=== PATIENT | male | born 1945 ===

== ENCOUNTER 2017-08-03 08:04 | Emergency (ER) | payer OTHER ==
[~2017-08-03] VITALS: Ht 177.8 cm; Wt 55.0 kg
[2017-08-03 08:05] VITALS: BP 170/79; PULSE 109; RESP 26; TEMP 98; O2SAT 89
[2017-08-03] MEDS ORDERED: methylPREDNISolone SOD SUCC 125 MG/2 ML VIAL IV PUSH ONE (08:45)
[2017-08-03] MEDS ORDERED: SODIUM CHLORIDE 0.9% FLUSH 10 ML FLUSH IVF PRN (08:45)
[2017-08-03 08:50] VITALS: O2SAT 90
--- NOTE | 2017-08-03 08:55 | PD ---
HPI Chief Complaint: Respiratory Symptoms Time Seen by Provider: 08:24 Travel History International Travel<30 days: No Contact w/Intl Traveler<30days: No Traveled to known affect area: No History of Present Illness HPI This patient complains of shortness of breath. He is chronically short of breath every day of his life but over the last 2 days has been a bit worse than usual. He is smoked for the past 55 years and continues to do so. He supposed to be on a breathing inhaler but it ran out a few days ago. He is got a nonproductive cough. No chest pain or documented fever. No alleviating factors. Symptoms exacerbated by continued smoking. Severity of symptoms is severe. PFSH Social History Alcohol Use: No Tobacco Use: Yes Substance Use: No Allergies-Medications (Allergen,Severity, Reaction): Coded Allergies: No Known Allergies (Unverified , 08/03/17) Reported Meds & Prescriptions Reported Meds & Active Scripts Active Zithromax Z-Jovon (Azithromycin) 250 Mg Dspk 250 Mg PO DIRECTED 500 MG (2 tabs) day 1, then 1 tab days 2-5. Ventolin Hfa 18 GM Inh (Albuterol Sulfate) 90 Mcg/Act Aer 2 Puff INH Q4H PRN Prednisone 20 Mg Tab 40 Mg PO DAILY Take 40 mg (2 tablets) daily for 5 days Review of Systems General / Constitutional: No: Fever Eyes: No: Visual changes HENT: Positive: Congestion, No: Headaches Cardiovascular: No: Chest Pain or Discomfort Respiratory: Positive: Cough, Shortness of Breath, Wheezing Gastrointestinal: No: Abdominal Pain Genitourinary: No: Dysuria Musculoskeletal: No: Pain Skin: No Rash Neurologic: No: Weakness Psychiatric: No: Depression Endocrine: No: Polydipsia Hematologic/Lymphatic: No: Easy Bruising Physical Exam Narrative GENERAL: Well-nourished, well-developed patient with shortness of breath SKIN: Focused skin assessment reveals no rash and nodules. Skin is Warm and dry. HEAD: Atraumatic. Normocephalic. EYES: Pupils equal and round. No scleral icterus. No injection or drainage. ENT: No nasal bleeding or discharge. Mucous membranes pink and moist. NECK: Trachea midline. No JVD. CARDIOVASCULAR: Regular rate and rhythm. No murmur appreciated. RESPIRATORY: Some accessory muscle use. Diminished breath sounds throughout with some rhonchi and expiratory wheeze or. Breath sounds equal bilaterally. GASTROINTESTINAL: Abdomen soft, non-tender, nondistended. Hepatic and splenic margins not palpable. MUSCULOSKELETAL: No obvious deformities. No clubbing. No cyanosis. No edema. NEUROLOGICAL: Awake and alert. No obvious cranial nerve deficits. Motor grossly within normal limits. Normal speech. PSYCHIATRIC: Appropriate mood and affect; insight and judgment poor. Data Data Last Documented VS Vital Signs Date Time Temp Pulse Resp B/P (MAP) Pulse Ox O2 Delivery O2 Flow Rate FiO2 08/03/17 11:06 112 24 121/61 (81) 97 Nasal Cannula 3.00 08/03/17 08:05 98.0 Orders Orders Complete Blood Count With Diff (08/03/17 08:33) Basic Metabolic Panel (Bmp) (08/03/17 08:33) Influenzae A/B Antigen (08/03/17 08:33) Iv Access Insert/Monitor (08/03/17 08:33) Electrocardiogram (08/03/17 08:33) Ecg Monitoring (08/03/17 08:33) Oximetry (08/03/17 08:33) Oxygen Administration (08/03/17 08:33) Chest, Single Ap (08/03/17 08:33) Sodium Chloride 0.9% Flush (Ns Flush) (08/03/17 08:45) Methylprednisolone So Succ Inj (Solumedr (08/03/17 08:45) Albuterol-Ipratropium Neb (Duoneb Neb) (08/03/17 08:45) Labs Laboratory Tests Test 08/03/17 08:55 White Blood Count 11.1 TH/MM3 Red Blood Count 4.27 MIL/MM3 Hemoglobin 10.6 GM/DL Hematocrit 31.5 % Mean Corpuscular Volume 73.8 FL Mean Corpuscular Hemoglobin 24.7 PG Mean Corpuscular Hemoglobin Concent 33.5 % Red Cell Distribution Width 18.2 % Platelet Count 372 TH/MM3 Mean Platelet Volume 6.7 FL Neutrophils (%) (Auto) 89.1 % Lymphocytes (%) (Auto) 3.1 % Monocytes (%) (Auto) 7.5 % Eosinophils (%) (Auto) 0.0 % Basophils (%) (Auto) 0.3 % Neutrophils # (Auto) 9.9 TH/MM3 Lymphocytes # (Auto) 0.3 TH/MM3 Monocytes # (Auto) 0.8 TH/MM3 Eosinophils # (Auto) 0.0 TH/MM3 Basophils # (Auto) 0.0 TH/MM3 CBC Comment DIFF FINAL Differential Comment Blood Urea Nitrogen 10 MG/DL Creatinine 0.65 MG/DL Random Glucose 126 MG/DL Calcium Level 8.8 MG/DL Sodium Level 130 MEQ/L Potassium Level 4.1 MEQ/L Chloride Level 94 MEQ/L Carbon Dioxide Level 26.6 MEQ/L Anion Gap 9 MEQ/L Estimat Glomerular Filtration Rate 121 ML/MIN MDM Medical Decision Making Medical Screen Exam Complete: Yes Emergency Medical Condition: Yes Medical Record Reviewed: Yes Differential Diagnosis Differential diagnosis includes COPD, asthma, pneumonia, bronchitis, PE. Narrative Course I have reviewed the patient's electronic medical record. Patient arrives hypoxic in acute respiratory failure from COPD exacerbation Placed him on oxygen and given a series of 3 nebulizer treatments and IV Solu- Medrol I reviewed his chest x-ray which shows some inflammatory process which could be infectious I reviewed his EKG which shows sinus rhythm without ectopy Extended cardiac monitoring shows sinus rhythm I sent his lab studies We will do frequent re-evaluations given his level of dyspnea and pulmonary function which is probably quite poor Lab studies reviewed. He does have mild hyponatremia and mild anemia We discussed smoking cessation which she does not seem motivated to think about Patient arrived critically ill with hypoxic respiratory failure but has significant improved after all of the above therapies Saturations are now mid 90s He feels improved and wants to go home I prescribed him Zithromax and prednisone and an albuterol inhaler Critical Care Narrative Aggregate critical care time was 35 minutes. Time to perform other separately billable procedures was not included in the critical care time. My time did not include minutes spent treating any other patients simultaneously or on activities that did not directly contribute to the patient's treatment. The services I provided to this patient were to treat and/or prevent clinically significant deterioration that could result in: Cardiopulmonary arrest, respiratory failure, hypoxemic brain injury I provided critical care services requiring my management, as noted below: Chart data review, documentation time, medication orders and management, vital sign assessments/reviewing monitor data, ordering and reviewing lab tests, ordering and interpreting/reviewing x-rays and diagnostic studies, care of the patient and discussion of the patient with the admitting physicians. Diagnosis Primary Impression: Acute respiratory failure with hypoxia Additional Impressions: COPD with acute exacerbation Hyponatremia Additional Instructions: The patient was advised to follow up with their physician and return if they worsen. Med/Other Pt SpecificInfo: Prescription(s) given Scripts Azithromycin (Zithromax Z-Jovon) 250 Mg Dspk 250 MG PO DIRECTED for Infection, #1 DSPK 0 Refills 500 MG (2 tabs) day 1, then 1 tab days 2-5. Prov: Ottoniel Kraft MD 08/03/17 Albuterol 18 GM Inh (Ventolin Hfa 18 GM Inh) 90 Mcg/Act Aer 2 PUFF INH Q4H Y for SHORTNESS OF BREATH, #1 INHALER 0 Refills Prov: Ottoniel Kraft MD 08/03/17 Prednisone (Prednisone) 20 Mg Tab 40 MG PO DAILY, #10 TAB 0 Refills Take 40 mg (2 tablets) daily for 5 days Prov: Ottoniel Kraft MD 08/03/17 Disposition: 01 DISCHARGE HOME Condition: Stable Ottoniel Kraft MD Aug 03, 2017 08:55
[2017-08-03] MEDS: RESP: ALBUTEROL 2.5 MG/IPRATROPIUM 0.5 MG NEB (SCH) INH (08:58)
[2017-08-03 09:00] LABS: AUTOMATED NEUTROPHIL # 9.9 TH/MM3 (1.8-7.7); BASOPHIL % 0.3 % (0.0-2.0); HEMATOCRIT 31.5 % (39.0-51.0); HEMOGLOBIN 10.6 GM/DL (13.0-17.0); LYMPH % 3.1 % (9.0-44.0); LYMPHOCYTE # 0.3 TH/MM3 (1.0-4.8); MEAN CELL VOLUME 73.8 FL (80.0-100.0); MEAN CORPUSCULAR HEMOGLOBIN 24.7 PG (27.0-34.0); MEAN CORPUSCULAR HGB CONC 33.5 % (32.0-36.0); MEAN PLATELET VOLUME 6.7 FL (7.0-11.0); MONO % 7.5 % (0.0-8.0); MONOCYTE # 0.8 TH/MM3 (0-0.9); NEUT % 89.1 % (16.0-70.0); PLATELET COUNT 372 TH/MM3 (150-450); RED BLOOD COUNT 4.27 MIL/MM3 (4.50-5.90); RED CELL DISTRIBUTION WIDTH 18.2 % (11.6-17.2); WHITE BLOOD COUNT 11.1 TH/MM3 (4.0-11.0)
--- NOTE | 2017-08-03 09:14 | RADRPT ---
EXAM DATE/TIME: 08/03/2017 08:58 [facility] COMPARISON: No previous studies available for comparison. INDICATIONS : Patient states shortness of breath. MEDICAL HISTORY : Chronic obstructive pulmonary disease. SURGICAL HISTORY : None. ENCOUNTER: Initial ACUITY: 2 days PAIN SCORE: 0/10 LOCATION: Bilateral chest FINDINGS: The lungs are markedly hyperinflated with consolidative changes developing in the left lower lobe. T he right lung is clear. The heart and pulmonary vascularity are normal. The portion of the bony skele ton visualized is unremarkable. CONCLUSION: Marked hyperinflation with patchy early consolidative changes left base suspicious for inflammatory p rocess. I have no prior films for comparison. Edy Toure MD FACR on August 03, 2017 at 9:10 Board Certified Radiologist. This report was verified electronically.
[2017-08-03 09:29] LABS: BICARBONATE 26.6 MEQ/L (21.0-32.0); CALCIUM 8.8 MG/DL (8.5-10.1); CREATININE 0.65 MG/DL (0.60-1.30)
[2017-08-03 11:06] VITALS: BP 121/61; PULSE 112; RESP 24; O2SAT 97
[2017-08-03] MEDS ORDERED: PRED20 PO (12:47)
[2017-08-03] MEDS ORDERED: VENTAER INH (12:47)
[2017-08-03] MEDS ORDERED: ZITHTAB PO (12:47)
[2017-08-03 12:52] VITALS: BP 121/61
--- NOTE | 2017-08-03 21:15 | EKG ---
Date Performed: 08/03/2017 Time Performed: 08:20:23 PTAGE: 72 years EKG: SINUS TACHYCARDIA POSSIBLE ANTERIOR MYOCARDIAL INFARCTION ABNORMAL ECG NO PREVIOUS TRACING DOCTOR: Pat Beard Interpretating Date/Time 08/03/2017 21:13:44
== END 2017-08-03 13:14 | disposition home or self-care (01) ==
LOC: NEPC 08:04
DX: J96.01 Acute respiratory failure with hypoxia (principal); J44.1 Chronic obstructive pulmonary disease with (acute) exacerbation; E87.1 Hypo-osmolality and hyponatremia; D64.9 Anemia, unspecified; R00.0 Tachycardia, unspecified; R94.31 Abnormal electrocardiogram [ECG] [EKG]; F17.200 Nicotine dependence, unspecified, uncomplicated; Z95.1 Presence of aortocoronary bypass graft; Z79.899 Other long term (current) drug therapy
CPT/HCPCS: 71045; 80048; 85025; 87804; 93005; 94664; 96374; 99291; J2930

== ENCOUNTER 2017-08-09 18:46 | Inpatient (IN) | payer OTHER, MEDICARE ==
[~2017-08-09] VITALS: Ht 170.2 cm; Wt 48.0 kg
[~2017-08-09 18:46] MED LIST: PRED20 PO; VENTAER INH; ZITHTAB PO
[2017-08-09 18:52] VITALS: BP 143/63; PULSE 116; RESP 24; TEMP 98.8; O2SAT 97
[2017-08-09] MEDS ORDERED: PRED20 PO (18:57)
[2017-08-09] MEDS ORDERED: SODIUM CHLORIDE 0.9% FLUSH 10 ML FLUSH IVF PRN (19:15)
[2017-08-09] MEDS ORDERED: RESP: ALBUTEROL 2.5 MG/IPRATROPIUM 0.5 MG NEB (SCH) INH ONE (19:15)
[2017-08-09] MEDS ORDERED: methylPREDNISolone SOD SUCC 125 MG/2 ML VIAL IV PUSH ONE (19:15)
--- NOTE | 2017-08-09 19:22 | PD ---
HPI Chief Complaint: Respiratory Symptoms Time Seen by Provider: 19:05 Travel History International Travel<30 days: No Contact w/Intl Traveler<30days: No Traveled to known affect area: No History of Present Illness HPI This is a 72-year-old male with a history of COPD, presents here with complaints of shortness of breath since . She reports that he has had productive cough with yellow phlegm. He denies any fevers. He states it has been a while since he has had to be admitted to the hospital. He was unable to tell me whether he has been intubated or not. The patient denies any chest pain , chest pressure. There is no nausea vomiting diarrhea. There are no other complaints at the time of examination. [facility] Past Medical History Asthma: Yes COPD: Yes Diminished Hearing: No Respiratory: Yes (COPD) Tetanus Vaccination: > 5 Years Influenza Vaccination: No Past Surgical History Surgical History: No Previous Surgery Social History Alcohol Use: No Tobacco Use: Yes (2 -3 CIGARRETTES PER DAY) Substance Use: No Allergies-Medications (Allergen,Severity, Reaction): Coded Allergies: No Known Allergies (Unverified , 08/09/17) Reported Meds & Prescriptions Reported Meds & Active Scripts Active Reported Prednisone 20 Mg Tab 20 Mg PO DAILY Review of Systems Except as stated in HPI: all other systems reviewed are Neg General / Constitutional: No: Fever, Chills HENT: No: Headaches, Neck Pain Cardiovascular: No: Chest Pain or Discomfort, Palpitations Respiratory: Positive: Cough (With yellow phlegm.), Shortness of Breath, Wheezing Gastrointestinal: No: Nausea, Vomiting, Abdominal Pain Genitourinary: No: Frequency, Dysuria Musculoskeletal: Positive: Weakness (Generalized), No: Pain Neurologic: Positive: Weakness (Generalized), No: Headache Physical Exam Narrative GENERAL: Elderly ill appearing male in moderate respiratory distress SKIN: Focused skin assessment warm/dry. HEAD: Atraumatic. Normocephalic. EYES: No scleral icterus. No injection or drainage. ENT: No nasal bleeding or discharge. Mucous membranes pink and dry. NECK: Trachea midline. Supple. CARDIOVASCULAR: Regular rate and rhythm. No murmur appreciated. RESPIRATORY: Positive accessory muscle use. No obvious rales appreciated on exam. There were wheezes appreciated in midlung [place] bilaterally. GASTROINTESTINAL: Abdomen soft, non-tender, nondistended. MUSCULOSKELETAL: No obvious deformities. No clubbing. No cyanosis. No edema. NEUROLOGICAL: Awake and alert. No obvious cranial nerve deficits. Motor grossly within normal limits. Normal speech. Data Data Last Documented VS Vital Signs Date Time Temp Pulse Resp B/P (MAP) Pulse Ox O2 Delivery O2 Flow Rate FiO2 08/09/17 19:44 97 Nasal Cannula 5.00 08/09/17 19:43 110 26 121/63 (82) 08/09/17 18:52 98.8 Orders Orders Complete Blood Count With Diff (08/09/17 19:06) Comprehensive Metabolic Panel (08/09/17 19:06) B-Type Natriuretic Peptide (08/09/17 19:06) Ckmb (Isoenzyme) Profile (08/09/17 19:06) Troponin I (08/09/17 19:06) Arterial Blood Gas (Abg) (08/09/17 19:06) Blood Culture (08/09/17 19:06) Iv Access Insert/Monitor (08/09/17 19:06) Electrocardiogram (08/09/17 19:06) Ecg Monitoring (08/09/17 19:06) Oximetry (08/09/17 19:06) Oxygen Administration (08/09/17 19:06) Chest, Single Ap (08/09/17 19:06) Sodium Chloride 0.9% Flush (Ns Flush) (08/09/17 19:15) Methylprednisolone So Succ Inj (Solumedr (08/09/17 19:15) Albuterol-Ipratropium Neb (Duoneb Neb) (08/09/17 19:15) Albuterol Neb (Albuterol Neb) (08/09/17 19:15) Methylprednisolone So Succ Inj (Solumedr (08/10/17 00:00) Albuterol-Ipratropium Neb (Duoneb Neb) (08/10/17 08:00) Albuterol-Ipratropium Neb (Duoneb Neb) (08/09/17 20:30) Levofloxacin 750 Mg Premix Inj (Levaquin (08/10/17 21:00) Place In Observation (08/09/17 ) Vital Signs (Adult) Q4H (08/09/17 20:27) Activity Oob With Assistance (08/09/17 20:27) Diet Regular Basic (08/10/17 Breakfast) Sodium Chloride 0.9% Flush (Ns Flush) (08/09/17 20:30) Sodium Chloride 0.9% Flush (Ns Flush) (08/09/17 21:00) Ondansetron Inj (Zofran Inj) (08/09/17 20:30) Comprehensive Metabolic Panel (08/10/17 06:00) Complete Blood Count With Diff (08/10/17 06:00) Case Management Consult (08/09/17 20:27) Heparin Inj (Heparin Inj) (08/10/17 09:00) Acetaminophen (Tylenol) (08/09/17 20:30) Acetamin-Hydrocod 325-5 Mg ([place] 5-325 (08/09/17 20:30) Acetamin-Hydrocod 325-10 Mg ([place] 10-32 (08/09/17 20:30) Docusate Sodium-Senna (Carla-Colace) (08/09/17 21:00) Magnesium Hydroxide Liq (Milk Of Magnesi (08/09/17 20:30) Sennosides (Senokot) (08/09/17 20:30) Bisacodyl Supp (Dulcolax Supp) (08/09/17 20:30) Lactulose Liq (Lactulose Liq) (08/09/17 20:30) Budeson-Formot 160-4.5 Mcg Inh (Symbicor (08/09/17 21:00) Guaifenesin Er (Mucinex Er) (08/09/17 21:00) Sputum Culture And Gram Stain (08/09/17 20:27) Ceftriaxone Inj (Rocephin Inj) (08/09/17 20:30) Azithromycin Inj (Zithromax Inj) (08/09/17 20:30) Admit Order (Ed Use Only) (08/09/17 20:41) Labs Laboratory Tests Test 08/09/17 19:15 08/09/17 19:19 White Blood Count 14.1 TH/MM3 Red Blood Count 4.66 MIL/MM3 Hemoglobin 11.0 GM/DL Hematocrit 34.3 % Mean Corpuscular Volume 73.6 FL Mean Corpuscular Hemoglobin 23.6 PG Mean Corpuscular Hemoglobin Concent 32.1 % Red Cell Distribution Width 17.8 % Platelet Count 683 TH/MM3 Mean Platelet Volume 6.5 FL Neutrophils (%) (Auto) 81.4 % Lymphocytes (%) (Auto) 8.4 % Monocytes (%) (Auto) 9.7 % Eosinophils (%) (Auto) 0.0 % Basophils (%) (Auto) 0.5 % Neutrophils # (Auto) 11.4 TH/MM3 Lymphocytes # (Auto) 1.2 TH/MM3 Monocytes # (Auto) 1.4 TH/MM3 Eosinophils # (Auto) 0.0 TH/MM3 Basophils # (Auto) 0.1 TH/MM3 CBC Comment DIFF FINAL Differential Comment Blood Urea Nitrogen 17 MG/DL Creatinine 0.72 MG/DL Random Glucose 102 MG/DL Total Protein 8.1 GM/DL Albumin 2.5 GM/DL Calcium Level 8.9 MG/DL Alkaline Phosphatase 90 U/L Aspartate Amino Transf (AST/SGOT) 20 U/L Alanine Aminotransferase (ALT/SGPT) 19 U/L Total Bilirubin 0.5 MG/DL Sodium Level 132 MEQ/L Potassium Level 3.7 MEQ/L Chloride Level 91 MEQ/L Carbon Dioxide Level 28.2 MEQ/L Anion Gap 13 MEQ/L Estimat Glomerular Filtration Rate 107 ML/MIN Total Creatine Kinase 75 U/L Troponin I LESS THAN 0.02 NG/ML B-Type Natriuretic Peptide 35 PG/ML Blood Gas Puncture Site RT RADIAL Blood Gas Patient Temperature 98.6 Blood Gas HCO3 26 mmol/L Blood Gas Base Excess 2.9 mmol/L Blood Gas Oxygen Saturation 85 % Arterial Blood pH 7.49 Arterial Blood Partial Pressure CO2 34 mmHg Arterial Blood Partial Pressure O2 55 mmHg Arterial Blood Oxygen Content 13.9 Vol % Arterial Blood Carboxyhemoglobin 1.2 % Arterial Blood Methemoglobin 0.9 % Blood Gas Hemoglobin 11.6 G/DL Oxygen Delivery Device NASAL CANNULA Blood Gas Liter Flow 5 L/M [facility] Medical Decision Making Medical Screen Exam Complete: Yes Emergency Medical Condition: Yes Differential Diagnosis COPD exacerbation versus pneumonia versus anabolic derangement Narrative Course 72-year-old male with history of COPD, presents today with A COPD exacerbation. Patient has had progressive shortness of breath over the last 4 days. He denies any fevers, chills. He does report productive cough with yellow phlegm. He has been started on Solu-Medrol. He is also been given 3 nebulizer treatments of albuterol in the first with Atrchuchot. He is been started on Rocephin and Zithromax. Blood gas showed hypoxemia. There was a chronic and acute picture on the blood gas. He will be admitted under observation and continued on the treatment. Diagnosis Primary Impression: COPD exacerbation Additional Impressions: Leukocytosis Hypoxemia Admitting Information Admitting Physician Requests: Observation James Pacheco MD Aug 09, 2017 19:22
[2017-08-09 19:37] LABS: AUTOMATED NEUTROPHIL # 11.4 TH/MM3 (1.8-7.7); BASOPHIL # 0.1 TH/MM3 (0-0.2); BASOPHIL % 0.5 % (0.0-2.0); HEMATOCRIT 34.3 % (39.0-51.0); LYMPH % 8.4 % (9.0-44.0); LYMPHOCYTE # 1.2 TH/MM3 (1.0-4.8); MEAN CELL VOLUME 73.6 FL (80.0-100.0); MEAN CORPUSCULAR HEMOGLOBIN 23.6 PG (27.0-34.0); MEAN CORPUSCULAR HGB CONC 32.1 % (32.0-36.0); MEAN PLATELET VOLUME 6.5 FL (7.0-11.0); MONO % 9.7 % (0.0-8.0); MONOCYTE # 1.4 TH/MM3 (0-0.9); NEUT % 81.4 % (16.0-70.0); PLATELET COUNT 683 TH/MM3 (150-450); RED BLOOD COUNT 4.66 MIL/MM3 (4.50-5.90); RED CELL DISTRIBUTION WIDTH 17.8 % (11.6-17.2); WHITE BLOOD COUNT 14.1 TH/MM3 (4.0-11.0)
[2017-08-09] MEDS: RESP: ALBUTEROL 2.5 MG/3 ML NEB (SCH) INH (19:38)
[2017-08-09 19:43] VITALS: BP 121/63; PULSE 110; RESP 26; O2SAT 97
--- NOTE | 2017-08-09 19:51 | RADRPT ---
EXAM DATE/TIME: 08/09/2017 19:33 [facility] COMPARISON: CHEST SINGLE AP, August 03, 2017, 8:58. INDICATIONS : Short of breath. MEDICAL HISTORY : Chronic obstructive pulmonary disease. SURGICAL HISTORY : None. ENCOUNTER: Initial ACUITY: 1 day PAIN SCORE: 0/10 LOCATION: Bilateral chest FINDINGS: Increasing airspace disease left lower lobe. Moderate hyperinflation. Right lung clear.. The cardi omediastinal contours are unremarkable. Osseous structures are intact. CONCLUSION: Increasing airspace disease left lower lobe.. Edy Toure MD FACR on August 09, 2017 at 19:48 Board Certified Radiologist. This report was verified electronically.
[2017-08-09 19:55] LABS: ALBUMIN 2.5 GM/DL (3.4-5.0); AST (GOT) 20 U/L (15-37); BICARBONATE 28.2 MEQ/L (21.0-32.0); BLOOD UREA NITROGEN 17 MG/DL (7-18); CALCIUM 8.9 MG/DL (8.5-10.1); CHLORIDE 91 MEQ/L (98-107); CREATININE 0.72 MG/DL (0.60-1.30); GLOMERULAR FILTRATION RATE 107 ML/MIN (>89); GLUCOSE,RANDOM 102 MG/DL (74-106); SODIUM (NA) 132 MEQ/L (136-145)
[2017-08-09 19:56] LABS: ALT (GPT) 19 U/L (12-78)
[2017-08-09 20:00] LABS: ALKALINE PHOSPHATASE 90 U/L (45-117); TOTAL BILIRUBIN ADULT 0.5 MG/DL (0.2-1.0); TOTAL PROTEIN 8.1 GM/DL (6.4-8.2); TROPONIN I LESS THAN 0.02 NG/ML (0.02-0.05)
--- NOTE | 2017-08-09 20:29 | HHI.HP ---
[facility] Unknown Admission Diagnosis Diagnoses: (1) COPD (chronic obstructive pulmonary disease) Diagnosis: Principal (2) PNA (pneumonia) Diagnosis: Principal (3) Tobacco abuse Diagnosis: Principal Travel History International Travel<30 Days: No Contact w/Intl Traveler <30 Da: No Traveled to Known Affected Are: No History of Present Illness This is a 72-year-old male with a PMH of COPD and Tobacco Abuse who presented to the ER with complaints of SOB x1 wk. Reports associated wheezing and productive cough w/ yellow-colored sputum. States he is supposed to be on Home O2, but "I can't afford it". States he has not been on antibiotics and start of his symptoms, however presented to ER on 08/03/2017 for similar complaints and was discharged with Z-Jovon, Albuterol and Prednisone 40 mg daily. Denies fever, chills, chest pain or sick contacts. On arrival, BP 121/63, HR 110, O2 sat 97% on 5L NC, Afebrile. WBC 14.1. Chemistry essentially unremarkable. Troponin negative. PH 7.49, PCO2 34, PO2 55 on 5L NC. CXR with increasing airspace disease left lower lobe. s/p Rocephin/Zithro in the ER. Review of Systems Except as stated in HPI: all other systems reviewed are Neg ROS: 14 point review of systems otherwise negative. Past Family Social History Past Medical History PMH COPD and Tobacco Abuse Past Surgical History PAST SURGICAL HISTORY: None Allergies: Coded Allergies: No Known Allergies (Unverified , 08/09/17) Family History PAST FAMILY HISTORY: Reviewed. No h/o DM or CAD Social History PAST SOCIAL HISTORY: Negative for alcohol or drugs. Smokes 2-3 cigarettes per day per Physical Exam Vital Signs Vital Signs Date Time Temp Pulse Resp B/P (MAP) Pulse Ox O2 Delivery O2 Flow Rate FiO2 08/09/17 19:44 97 Nasal Cannula 5.00 08/09/17 19:43 110 26 121/63 (82) 97 Nasal Cannula 5.00 08/09/17 18:56 112 24 96 Nasal Cannula 4.00 08/09/17 18:52 98.8 116 24 143/63 (89 97 Physical Exam PE: GENERAL: Extremely thin, frail, chronically ill-appearing elderly male in no acute distress. +cough HEENT: PERRLA, EOMI. No scleral icterus or conjunctival pallor. No lid lag or facial droop. CARDIOVASCULAR: Regular rate and rhythm. No obvious murmurs to auscultation. No chest tenderness to palpation. RESPIRATORY: No obvious rhonchi, occasional wheezing. Clear to auscultation. Breath sounds equal bilaterally. GASTROINTESTINAL: Abdomen soft, non-tender, nondistended. BS normal. MUSCULOSKELETAL: Extremities without clubbing, cyanosis, or edema. No obvious deformities. NEUROLOGICAL: Awake, alert and oriented x4. No focal neurologic deficits. Moving both upper and lower extremities spontaneously. Laboratory Laboratory Tests Test 08/09/17 19:15 08/09/17 19:19 White Blood Count 14.1 Red Blood Count 4.66 Hemoglobin 11.0 Hematocrit 34.3 Mean Corpuscular Volume 73.6 Mean Corpuscular Hemoglobin 23.6 Mean Corpuscular Hemoglobin Concent 32.1 Red Cell Distribution Width 17.8 Platelet Count 683 Mean Platelet Volume 6.5 Neutrophils (%) (Auto) 81.4 Lymphocytes (%) (Auto) 8.4 Monocytes (%) (Auto) 9.7 Eosinophils (%) (Auto) 0.0 Basophils (%) (Auto) 0.5 Neutrophils # (Auto) 11.4 Lymphocytes # (Auto) 1.2 Monocytes # (Auto) 1.4 Eosinophils # (Auto) 0.0 Basophils # (Auto) 0.1 CBC Comment DIFF FINAL Differential Comment Blood Urea Nitrogen 17 Creatinine 0.72 Random Glucose 102 Total Protein 8.1 Albumin 2.5 Calcium Level 8.9 Alkaline Phosphatase 90 Aspartate Amino Transf (AST/SGOT) 20 Alanine Aminotransferase (ALT/SGPT) 19 Total Bilirubin 0.5 Sodium Level 132 Potassium Level 3.7 Chloride Level 91 Carbon Dioxide Level 28.2 Anion Gap 13 Estimat Glomerular Filtration Rate 107 Total Creatine Kinase 75 Troponin I LESS THAN 0.02 B-Type Natriuretic Peptide 35 Blood Gas Puncture Site RT RADIAL Blood Gas Patient Temperature 98.6 Blood Gas HCO3 26 Blood Gas Base Excess 2.9 Blood Gas Oxygen Saturation 85 Arterial Blood pH 7.49 Arterial Blood Partial Pressure CO2 34 Arterial Blood Partial Pressure O2 55 Arterial Blood Oxygen Content 13.9 Arterial Blood Carboxyhemoglobin 1.2 Arterial Blood Methemoglobin 0.9 Blood Gas Hemoglobin 11.6 Oxygen Delivery Device NASAL CANNULA Blood Gas Liter Flow 5 Date/Time Source Procedure Growth Status 08/09/17 19:15 Blood Peripheral Aerobic Blood Culture Pending Received 08/09/17 19:15 Blood Peripheral Anaerobic Blood Culture Pending Received Result Diagram: 08/09/17191408/09/171914 Caprini VTE Risk Assessment Caprini VTE Risk Assessment: No/Low Risk (score <= 1) Caprini Risk Assessment Model Point Value = 1 Point Value = 2 Point Value = 3 Point Value = 5 Age 41-60 Minor surgery BMI > 25 kg/m2 Swollen legs Varicose veins or History of unexplained or recurrent spontaneous Oral contraceptives or hormone replacement Sepsis (< 1 month) Serious lung disease, including pneumonia (< 1 month) Abnormal pulmonary function Acute myocardial infarction Congestive heart failure (< 1 month) History of inflammatory bowel disease Medical patient at bed rest Age 61-74 Arthroscopic surgery Major open surgery (> 45 min) Laparoscopic surgery (> 45 min) Malignancy Confined to bed (> 72 hours) Immobilizing plaster cast Central venous access Age >= 75 History of VTE Family history of VTE Factor V Leiden Prothrombin [id number] Lupus anticoagulant Anticardiolipin antibodies Elevated serum homocysteine Heparin-induced thrombocytopenia Other congenital or acquired thrombophilia Stroke (< 1 month) Elective arthroplasty Hip, pelvis, or leg fracture Acute spinal cord injury (< 1 month) Prophylaxis Regimen Total Risk Factor Score Risk Level Prophylaxis Regimen 0-1 Low Early ambulation 2 Moderate Order ONE of the following: *Sequential Compression Device (SCD) *Heparin 5000 units SQ BID 3-4 Higher Order ONE of the following medications: *Heparin 5000 units SQ TID *Enoxaparin/Lovenox 40 mg SQ daily (WT < 150 kg, CrCl > 30 mL/min) *Enoxaparin/Lovenox 30 mg SQ daily (WT < 150 kg, CrCl > 10-29 mL/min) *Enoxaparin/Lovenox 30 mg SQ BID (WT < 150 kg, CrCl > 30 mL/min) AND/OR *Sequential Compression Device (SCD) 5 or more Highest Order ONE of the following medications: *Heparin 5000 units SQ TID (Preferred with Epidurals) *Enoxaparin/Lovenox 40 mg SQ daily (WT < 150 kg, CrCl > 30 mL/min) *Enoxaparin/Lovenox 30 mg SQ daily (WT < 150 kg, CrCl > 10-29 mL/min) *Enoxaparin/Lovenox 30 mg SQ BID (WT < 150 kg, CrCl > 30 mL/min) AND *Sequential Compression Device (SCD) Assessment and Plan Problem List: (1) COPD (chronic obstructive pulmonary disease) ICD Code: J44.9 - Chronic obstructive pulmonary disease, unspecified (2) PNA (pneumonia) ICD Code: J18.9 - Pneumonia, unspecified organism (3) Tobacco abuse ICD Code: Z72.0 - Tobacco use Assessment and Plan A/P: 1. COPD: Chronic Respiratory Failure w/ Acute Exacerbation. Severe. + wheezing, +respiratory distress on arrival. O2 sat 93-95% on 5L NC. Solu- Medrol, DuoNeb, Symbicort, Mucinex. Supposed to be on Home O2 but states can't afford it. Consult Case Management for assistance. 2. PNA: CXR w/ LLL infiltrate, +productive cough. s/p Rocephin/Zithro in ER, will continue w/ IV Abx. Check Sputum Cultures. DuoNeb prn, Mucinex. 3. Tobacco Abuse: Pt counselled. NicoDerm prn if needed. 4. DVT Prophylaxis: SCD/Teds. 5. Social work for d/c planning as needed. 6. Case discussed w/ ER physician at length, labs/records/imaging reviewed by me. Kaya Porras MD Aug 09, 2017 20:29
[2017-08-09] MEDS ORDERED: RESP: ALBUTEROL 2.5 MG/IPRATROPIUM 0.5 MG NEB (PRN) NEB (20:30)
[2017-08-09] MEDS ORDERED: BISACODYL 10 MG SUPP RECTAL PRN (20:30)
[2017-08-09] MEDS ORDERED: MAGNESIUM HYDROXIDE SUSP 30 ML CUP PO PRN (20:30)
[2017-08-09] MEDS ORDERED: LACTULOSE SYRUP 20 GM/30 ML CUP PO PRN (20:30)
[2017-08-09] MEDS ORDERED: ACETAMINOPHEN 325 MG TAB PO PRN (20:30)
[2017-08-09] MEDS ORDERED: cefTRIAXone INJ 1,000 MG in SODIUM CHLORIDE 0.9% INJ 100 ML IV ONE (20:30)
[2017-08-09] MEDS ORDERED: SENNOSIDES 8.6 MG TAB PO PRN (20:30)
[2017-08-09] MEDS ORDERED: ONDANSETRON HCL 4 MG/2 ML VIAL IVP PRN (20:30)
[2017-08-09] MEDS ORDERED: SODIUM CHLORIDE 0.9% FLUSH 10 ML FLUSH IV FLUSH PRN (20:30)
[2017-08-09] MEDS ORDERED: ACETAMINOPHEN/HYDROcodone 325 MG/10 MG TAB PO PRN (20:30)
[2017-08-09] MEDS ORDERED: ACETAMINOPHEN/HYDROcodone 325 MG/5 MG TAB PO PRN (20:30)
[2017-08-09] MEDS ORDERED: AZITHROMYCIN INJ 500 MG in SODIUM CHLOR 0.9% 250 ML INJ 250 ML IV ONE (20:30)
[2017-08-09 21:00] VITALS: BP 130/57; PULSE 109; RESP 24; O2SAT 93
[2017-08-09 21:47] VITALS: BP 114/61; PULSE 112; RESP 20; TEMP 98.9; O2SAT 92
[2017-08-09] MEDS: SODIUM CHLORIDE 0.9% FLUSH 10 ML FLUSH IV FLUSH SCH (21:47)
[2017-08-09] MEDS: BUDESONIDE-FORMOTEROL 160/4.5 MCG INHALER INH SCH (21:47)
[2017-08-09] MEDS: guaiFENesin E.R. 600 MG TAB PO SCH (22:35)
[2017-08-09] MEDS: DOCUSATE SODIUM 50 MG/SENNA 8.6 MG TAB PO SCH (22:35)
[2017-08-10] VITALS (8 sets, daily range): BP systolic 89–104; BP diastolic 50–56; PULSE 68–105; RESP 16–20; TEMP 97.9–98.5; O2SAT 95–100
[2017-08-10] MEDS: methylPREDNISolone SOD SUCC 40 MG/1 ML VIAL IV PUSH SCH ×4 (01:56→18:57)
[2017-08-10 05:32] LABS: ALBUMIN 2.1 GM/DL (3.4-5.0); AST (GOT) 20 U/L (15-37); BICARBONATE 29.2 MEQ/L (21.0-32.0); BLOOD UREA NITROGEN 17 MG/DL (7-18); CALCIUM 8.5 MG/DL (8.5-10.1); CHLORIDE 93 MEQ/L (98-107); CREATININE 0.67 MG/DL (0.60-1.30); GLOMERULAR FILTRATION RATE 117 ML/MIN (>89); GLUCOSE,RANDOM 173 MG/DL (74-106); SODIUM (NA) 132 MEQ/L (136-145)
[2017-08-10 05:36] LABS: ALKALINE PHOSPHATASE 126 U/L (45-117); ALT (GPT) 16 U/L (12-78); TOTAL BILIRUBIN ADULT 0.3 MG/DL (0.2-1.0); TOTAL PROTEIN 6.9 GM/DL (6.4-8.2)
[2017-08-10 06:21] LABS: AUTOMATED NEUTROPHIL # 9.7 TH/MM3 (1.8-7.7); HEMATOCRIT 28.6 % (39.0-51.0); HEMOGLOBIN 9.2 GM/DL (13.0-17.0); LYMPH % 3.2 % (9.0-44.0); LYMPHOCYTE # 0.3 TH/MM3 (1.0-4.8); MEAN CELL VOLUME 73.6 FL (80.0-100.0); MEAN CORPUSCULAR HEMOGLOBIN 23.6 PG (27.0-34.0); MEAN PLATELET VOLUME 6.7 FL (7.0-11.0); MONOCYTE # 0.2 TH/MM3 (0-0.9); NEUT % 94.8 % (16.0-70.0); PLATELET COUNT 584 TH/MM3 (150-450); RED BLOOD COUNT 3.89 MIL/MM3 (4.50-5.90); RED CELL DISTRIBUTION WIDTH 17.6 % (11.6-17.2); WHITE BLOOD COUNT 10.2 TH/MM3 (4.0-11.0)
[2017-08-10] MEDS: RESP: ALBUTEROL 2.5 MG/IPRATROPIUM 0.5 MG NEB (SCH) NEB ×4 (07:20→20:33)
[2017-08-10] MEDS: SODIUM CHLORIDE 0.9% FLUSH 10 ML FLUSH IV FLUSH SCH ×2 (07:35→20:57)
[2017-08-10] MEDS: HEPARIN SODIUM - SQ 10,000 UNITS/ML VIAL SQ SCH ×2 (09:00→21:00)
[2017-08-10] MEDS: BUDESONIDE-FORMOTEROL 160/4.5 MCG INHALER INH SCH ×2 (09:58→20:57)
[2017-08-10] MEDS: guaiFENesin E.R. 600 MG TAB PO SCH ×2 (09:59→20:57)
[2017-08-10] MEDS: DOCUSATE SODIUM 50 MG/SENNA 8.6 MG TAB PO SCH ×2 (09:59→20:56)
--- NOTE | 2017-08-10 17:32 | HHI.PR ---
Subjective Remarks Patient says that shortness of breath is not really improving today. Denies any chest pain. Denies any nausea or vomiting. Reports chronic weight loss, uncertain of amount. Objective Vital Signs Date Time Temp Pulse Resp B/P (MAP) Pulse Ox O2 Delivery O2 Flow Rate FiO2 08/10/17 15:06 97.9 99 20 104/55 (71) 97 08/10/17 11:16 98.5 95 20 90/50 (63) 98 08/10/17 07:59 98.0 68 16 94/52 (66) 95 08/10/17 07:23 97 Nasal Cannula 5.00 08/10/17 03:31 98.2 82 18 89/50 (63) 97 08/10/17 00:02 98.2 105 18 98/56 (70) 97 08/09/17 23:51 Nasal Cannula 5.00 08/09/17 21:47 98.9 112 20 114/61 (78) 92 08/09/17 21:40 08/09/17 21:00 109 24 130/57 (81) 93 Nasal Cannula 5.00 08/09/17 19:44 97 Nasal Cannula 5.00 08/09/17 19:43 110 26 121/63 (82) 97 Nasal Cannula 5.00 08/09/17 18:56 112 24 96 Nasal Cannula 4.00 08/09/17 18:52 98.8 116 24 143/63 (89) 97 I/O 08/09/17 08/09/17 08/09/17 08/10/17 08/10/17 08/10/17 07:00 15:00 23:00 07:00 15:00 23:00 Intake Total 100 ml 250 ml Balance 100 ml 250 ml Intake IV Total 100 ml 250 ml Result Diagram: 08/10/1742208/10/17422 Objective Remarks GENERAL: Patient sitting up in bed. Appears comfortable. Cachectic. SKIN: Warm and dry. HEAD: Normocephalic. EYES: No scleral icterus. No injection or drainage. NECK: Supple, trachea midline. No JVD. CARDIOVASCULAR: Regular rate and rhythm without murmurs, gallops, or rubs. RESPIRATORY: Breath sounds equal bilaterally. No accessory muscle use. Dry crackles bilateral bases. GASTROINTESTINAL: Abdomen soft, non-tender, nondistended. MUSCULOSKELETAL: No cyanosis, or edema. BACK: Nontender without obvious deformity. No CVA tenderness. A/P Assessment and Plan //Sepsis on admission = Leukocytosis of 14, tachypnea, tachycardia. Left lower lobe pneumonia. -Blood cultures ordered and pending. -leukocytosis has improved, however still tachycardic and tachypneic. = Continue broad-spectrum antibiotics, treatment for pneumonia as below. //COPD: Chronic Respiratory Failure w/ Acute Exacerbation. Severe. +wheezing , +respiratory distress on arrival. O2 sat 93-95% on 5L NC. Solu-Medrol, DuoNeb, Symbicort, Mucinex. Supposed to be on Home O2 but states can't afford it. Consult Case Management for assistance. = Continue duo nebs, steroids. Consult pulmonary as slow improvement. Due to tachypnea, suspicion for possible embolism. Check CT pulmonary Angio //PNA: CXR w/ LLL infiltrate, +productive cough. s/p Rocephin/Zithro in ER, will continue w/ IV Abx. Check Sputum Cultures. DuoNeb prn, Mucinex. = Continue broad-spectrum antibiotics as well.. Sputum culture pending. //Generalized weakness. Consult physical therapy. //Tobacco Abuse: Pt counselled. NicoDerm prn if needed. //DVT Prophylaxis: SCD/Teds. Discharge Planning Admit to inpatient PT consulted. Aydin Desouza MD Aug 10, 2017 17:32
[2017-08-10] MEDS ORDERED: IOHEXOL 350 MG/ML 10 ML VIAL (for RAD DIAG) IVCONTRAST ONE (18:47)
--- NOTE | 2017-08-10 19:10 | RADRPT ---
EXAM DATE/TIME: 08/10/2017 18:39 [facility] COMPARISON: No previous studies available for comparison. INDICATIONS : Short of breath. Evaluate for pulmonary embolism. IV CONTRAST: 75 cc Omnipaque 350 (iohexol) IV RADIATION DOSE: 4.77 CTDIvol (mGy) MEDICAL HISTORY : Chronic obstructive pulmonary disease. Asthma. SURGICAL HISTORY : None. ENCOUNTER: Initial ACUITY: 2 weeks PAIN SCALE: 0/10 LOCATION: chest TECHNIQUE: Volumetric scanning of the chest was performed using a pulmonary embolism protocol MIP images were re constructed. Using automated exposure control and adjustment of the mA and/or kV according to patien t size, radiation dose was kept as low as reasonably achievable to obtain optimal diagnostic quality images. DICOM format image data is available electronically for review and comparison. Follow-up recommendations for detected pulmonary nodules are based at a minimum on nodule size and pa tient risk factors according to Fleischner Society Guidelines. FINDINGS: There is confluent dense consolidation in both lung bases, worse on the left side with extensive dist al airway disease as well as rayray ectasis and extensive peribronchial thickening. No filling defects to suggest pulmonary embolus. No significant pleural or pericardial effusion. No a cute findings in the upper abdomen. CONCLUSION: 1. Dense consolidation of both lung bases most characteristic of bronchopneumonia. There is also exte nsive distal airway disease in the lungs especially mid and lower lungs with bronchiectasis and perib ronchial thickening. There is moderate emphysema. 2. Negative for pulmonary embolus. 3. Borderline to mildly enlarged hilar and mediastinal lymph nodes. Akbar Reyes MD on August 10, 2017 at 19:04 Board Certified Radiologist. This report was verified electronically.
[2017-08-10] MEDS: LEVOFLOXACIN 750 MG PREMIX INJ 150 ML IV SCH (20:57)
[2017-08-11] VITALS: O2SAT 97
--- NOTE | 2017-08-11 00:24 | EKG ---
Date Performed: 08/09/2017 Time Performed: 18:56:56 PTAGE: 72 years EKG: SINUS TACHYCARDIA WITH OCCASIONAL SUPRAVENTRICULAR PREMATURE COMPLEXES POSSIBLE ANTERIOR MY OCARDIAL INFARCTION ABNORMAL ECG NO PREVIOUS TRACING DOCTOR: Kelton Larios Interpretating Date/Time 08/11/2017 00:12:18
[2017-08-11] MEDS: methylPREDNISolone SOD SUCC 40 MG/1 ML VIAL IV PUSH SCH ×4 (00:59→18:26)
[2017-08-11 03:33] VITALS: BP 92/50; PULSE 79; RESP 16; TEMP 98.4; O2SAT 97
[2017-08-11] MEDS: RESP: ALBUTEROL 2.5 MG/IPRATROPIUM 0.5 MG NEB (SCH) NEB ×3 (07:23→20:00)
[2017-08-11 07:52] VITALS: BP 88/49; PULSE 78; RESP 20; TEMP 98.1; O2SAT 91
[2017-08-11] MEDS: HEPARIN SODIUM - SQ 10,000 UNITS/ML VIAL SQ SCH ×2 (09:00→21:00)
[2017-08-11] MEDS: DOCUSATE SODIUM 50 MG/SENNA 8.6 MG TAB PO SCH ×2 (09:56→21:14)
[2017-08-11] MEDS: BUDESONIDE-FORMOTEROL 160/4.5 MCG INHALER INH SCH ×2 (09:56→21:14)
[2017-08-11] MEDS: SODIUM CHLORIDE 0.9% FLUSH 10 ML FLUSH IV FLUSH SCH ×2 (09:56→21:14)
[2017-08-11] MEDS: guaiFENesin E.R. 600 MG TAB PO SCH ×2 (09:56→21:15)
[2017-08-11 11:14] VITALS: BP 90/51; PULSE 96; RESP 16; TEMP 97.3; O2SAT 95
[2017-08-11] MEDS ORDERED: OXYGENDME NAS.CANULA (13:42)
--- NOTE | 2017-08-11 13:47 | HHI.PR ---
Subjective Remarks Patient says he is feeling a little better today, not quite ready to go home yet. Objective Vital Signs Date Time Temp Pulse Resp B/P (MAP) Pulse Ox O2 Delivery O2 Flow Rate FiO2 08/11/17 11:14 97.3 96 16 90/51 (64) 95 08/11/17 07:52 98.1 78 20 88/49 (62) 91 08/11/17 03:33 98.4 79 16 92/50 (64) 97 08/11/17 00:00 97 Nasal Cannula 3.00 08/10/17 23:32 97.9 88 16 93/52 (66) 99 08/10/17 21:11 98.1 90 16 99/54 (69) 100 08/10/17 15:06 97.9 99 20 104/55 (71) 97 I/O 08/10/17 08/10/17 08/10/17 08/11/17 08/11/17 08/11/17 07:00 15:00 23:00 07:00 15:00 23:00 Intake Total 250 ml Balance 250 ml Intake IV Total 250 ml Result Diagram: 08/10/1742208/10/17422 Objective Remarks GENERAL: Patient sitting up in bed. Appears comfortable. Cachectic. aaox3 SKIN: Warm and dry. HEAD: Normocephalic. EYES: No scleral icterus. No injection or drainage. NECK: Supple, trachea midline. No JVD. CARDIOVASCULAR: Regular rate and rhythm without murmurs, gallops, or rubs. RESPIRATORY: Breath sounds equal bilaterally. No accessory muscle use. still Dry crackles bilateral bases. GASTROINTESTINAL: Abdomen soft, non-tender, nondistended. MUSCULOSKELETAL: No cyanosis, or edema. BACK: Nontender without obvious deformity. No CVA tenderness. A/P Assessment and Plan //Sepsis on admission = Leukocytosis of 14, tachypnea, tachycardia. Left lower lobe pneumonia. -Blood cultures ordered and pending. -leukocytosis has improved, however still tachycardic and tachypneic. = Continue broad-spectrum antibiotics, treatment for pneumonia as below. = Improving. Recheck CBC. Continue antibiotics. //COPD: Chronic Respiratory Failure w/ Acute Exacerbation. Severe. +wheezing , +respiratory distress on arrival. O2 sat 93-95% on 5L NC. Solu-Medrol, DuoNeb, Symbicort, Mucinex. Supposed to be on Home O2 but states can't afford it. Consult Case Management for assistance. = Continue duo nebs, steroids. Consult pulmonary as slow improvement. Due to tachypnea, suspicion for possible embolism. Check CT pulmonary Angio = CT pulmonary angiogram with bilateral pneumonia. No evidence for pulmonary embolism //PNA: CXR w/ LLL infiltrate, +productive cough. s/p Rocephin/Zithro in ER, will continue w/ IV Abx. Check Sputum Cultures. DuoNeb prn, Mucinex. = Continue broad-spectrum antibiotics as well.. Sputum culture pending. = Pulmonary consultation pending //Generalized weakness. Consult physical therapy. //Tobacco Abuse: Pt counselled. NicoDerm prn if needed. //DVT Prophylaxis: SCD/Teds. Discharge Planning PT recommends rehab Aydin Desouza MD Aug 11, 2017 13:47
[2017-08-11 15:13] LABS: AUTOMATED NEUTROPHIL # 17.5 TH/MM3 (1.8-7.7); HEMATOCRIT 28.1 % (39.0-51.0); HEMOGLOBIN 8.7 GM/DL (13.0-17.0); LYMPH % 1.7 % (9.0-44.0); LYMPHOCYTE # 0.3 TH/MM3 (1.0-4.8); MEAN CORPUSCULAR HEMOGLOBIN 22.7 PG (27.0-34.0); MEAN PLATELET VOLUME 6.5 FL (7.0-11.0); MONO % 3.8 % (0.0-8.0); MONOCYTE # 0.7 TH/MM3 (0-0.9); NEUT % 94.5 % (16.0-70.0); PLATELET COUNT 616 TH/MM3 (150-450); RED BLOOD COUNT 3.85 MIL/MM3 (4.50-5.90); RED CELL DISTRIBUTION WIDTH 17.6 % (11.6-17.2); WHITE BLOOD COUNT 18.5 TH/MM3 (4.0-11.0)
[2017-08-11 15:36] VITALS: BP 107/52; PULSE 100; RESP 16; TEMP 97.9; O2SAT 97
--- NOTE | 2017-08-11 16:04 | MB ---
cc: Gilles Atkisn MD DATE: 08/11/2017 HISTORY OF PRESENT ILLNESS: Mr. Moya is a 72-year-old white male with a history of chronic obstructive pulmonary disease, continued to smoke a few cigarettes a day right up to the time of admission and has smoked his entire adult life. He has been using inhalers at home from a doctor in [place] and, although he has been told he needs oxygen, he says he cannot afford it. I presume the co-pay. He does have [employer] insurance. He presented with increased cough, congestion, shortness of breath after having been seen 08/03/2017 in the ER, so was admitted for observation. He has had no chest pain, no hemoptysis. He did have a cough with some slightly purulent sputum. CTA on admission revealed consolidation of both lung bases consistent with pneumonia, probably some basilar bronchiectasis along with significant emphysema. No evidence of pulmonary embolism. Blood cultures have been negative. White count was 14,000 and arterial blood gas on 5 liters on the day of admission, 08/09/2017, his pO2 was 55, pH 7.49, pCO2 34. Currently on 2-3 liters his sats are in the mid-90s. PAST MEDICAL HISTORY: He denies any other significant prior history. No cardiovascular history. No diabetes. PAST SURGICAL HISTORY: Never had any significant surgeries. ALLERGIES: HE HAS NO KNOWN ALLERGIES. MEDICATIONS: Reviewed in the EMR. SOCIAL HISTORY: He lives here alone, but he is actually planning on going back to [place] where he lived for many years. He has family there. They are coming down over the weekend to consider taking him back to [place]. He is originally from [place]. No alcohol abuse. Smoking as noted. REVIEW OF SYSTEMS: He has had no increased edema. No orthopnea, PND or chest pain. PHYSICAL EXAMINATION: GENERAL: A very thin, white male in no distress at rest. VITAL SIGNS: 98 degrees, 90/50, pulse 90, respirations 18, O2 saturation on 2 liters 95%. HEENT: Sclerae are anicteric. NECK: Neck veins are flat. CHEST: Severely diminished throughout but quite clear. No congestion, no wheezing. HEART: Regular rhythm. No harsh murmur. ABDOMEN: Soft. EXTREMITIES: No peripheral edema, cyanosis or clubbing. DISCUSSION: Mr. Moya appears to have severe chronic obstructive pulmonary disease, certainly based on his scans. He has a pneumonia at both bases, possibly some underlying bronchiectasis as well. Sputum has not been obtainable. He has done well on the current regimen including bronchodilators and corticosteroids along with Levaquin. If stable, he could be switched to oral therapy tomorrow with possible discharge. I encouraged him not to smoke any further and he seems agreeable to that and I think it would be in his best interest to be closer to family, which he plans on following up on soon. I will see him routinely. He is very stable at present. If he does go back to [place], I suggested he check in with his physician there as soon as he returns. If I can be of further assistance, I would be happy to see him back. R. MD MIKAELA Peng/LANCE , 03:37 PM , 04:02 PM
[2017-08-11 21:01] VITALS: O2SAT 95
[2017-08-11] MEDS: LEVOFLOXACIN 750 MG PREMIX INJ 150 ML IV SCH (21:14)
[2017-08-12] VITALS (7 sets, daily range): BP systolic 98–104; BP diastolic 55–59; PULSE 74–96; RESP 18–20; TEMP 96.1–98.3; O2SAT 94–99
[2017-08-12] MEDS: methylPREDNISolone SOD SUCC 40 MG/1 ML VIAL IV PUSH SCH ×4 (01:14→17:32)
[2017-08-12] MEDS: RESP: ALBUTEROL 2.5 MG/IPRATROPIUM 0.5 MG NEB (SCH) NEB ×4 (08:53→20:59)
[2017-08-12] MEDS: SODIUM CHLORIDE 0.9% FLUSH 10 ML FLUSH IV FLUSH SCH ×2 (08:59→21:18)
[2017-08-12] MEDS: HEPARIN SODIUM - SQ 10,000 UNITS/ML VIAL SQ SCH ×2 (08:59→21:15)
[2017-08-12] MEDS: DOCUSATE SODIUM 50 MG/SENNA 8.6 MG TAB PO SCH ×2 (08:59→21:15)
[2017-08-12] MEDS: guaiFENesin E.R. 600 MG TAB PO SCH ×2 (08:59→21:15)
[2017-08-12] MEDS: BUDESONIDE-FORMOTEROL 160/4.5 MCG INHALER INH SCH ×2 (08:59→21:18)
[2017-08-12] MEDS ORDERED: PRED20 PO (09:32)
[2017-08-12] MEDS ORDERED: LEVA750T9 PO (09:32)
[2017-08-12] MEDS ORDERED: Albuterol-Ipratropium Neb NEB (09:32)
[2017-08-12] MEDS ORDERED: guaiFENesin ER PO (09:32)
[2017-08-12] MEDS ORDERED: Budeson-Formot 160-4.5 Mcg Inh INH (09:32)
[2017-08-12] MEDS ORDERED: NEBU1MIS INH (09:35)
--- NOTE | 2017-08-12 09:35 | HHI.DS ---
Discharge Summary Admission Date Aug 10, 2017 at 17:27 Discharge Date: Aug 12, 2017 Admitting Diagnosis (1) COPD (chronic obstructive pulmonary disease) ICD Code: J44.9 - Chronic obstructive pulmonary disease, unspecified (2) PNA (pneumonia) ICD Code: J18.9 - Pneumonia, unspecified organism (3) Tobacco abuse ICD Code: Z72.0 - Tobacco use Procedures none Brief History - From Admission This is a 72-year-old male with a PMH of COPD and Tobacco Abuse who presented to the ER with complaints of SOB x1 wk. Reports associated wheezing and productive cough w/ yellow-colored sputum. States he is supposed to be on Home O2, but "I can't afford it". States he has not been on antibiotics and start of his symptoms, however presented to ER on 08/03/2017 for similar complaints and was discharged with Z-Jovon, Albuterol and Prednisone 40 mg daily. Denies fever, chills, chest pain or sick contacts. On arrival, BP 121/63, HR 110, O2 sat 97% on 5L NC, Afebrile. WBC 14.1. Chemistry essentially unremarkable. Troponin negative. PH 7.49, PCO2 34, PO2 55 on 5L NC. CXR with increasing airspace disease left lower lobe. s/p Rocephin/Zithro in the ER. CBC/BMP: 08/11/17 1441 08/10/17 0423 Significant Findings Laboratory Tests Test 08/09/17 19:15 08/09/17 19:19 08/10/17 04:23 08/11/17 14:41 White Blood Count 14.1 TH/MM3 (4.0-11.0) 18.5 TH/MM3 (4.0-11.0) Hemoglobin 11.0 GM/DL (13.0-17.0) 9.2 GM/DL (13.0-17.0) 8.7 GM/DL (13.0-17.0) Hematocrit 34.3 % (39.0-51.0) 28.6 % (39.0-51.0) 28.1 % (39.0-51.0) Mean Corpuscular Volume 73.6 FL (80.0-100.0) 73.6 FL (80.0-100.0) 73.0 FL (80.0-100.0) Mean Corpuscular Hemoglobin 23.6 PG (27.0-34.0) 23.6 PG (27.0-34.0) 22.7 PG (27.0-34.0) Red Cell Distribution Width 17.8 % (11.6-17.2) 17.6 % (11.6-17.2) 17.6 % (11.6-17.2) Platelet Count 683 TH/MM3 (150-450) 584 TH/MM3 (150-450) 616 TH/MM3 (150-450) Mean Platelet Volume 6.5 FL (7.0-11.0) 6.7 FL (7.0-11.0) 6.5 FL (7.0-11.0) Neutrophils (%) (Auto) 81.4 % (16.0-70.0) 94.8 % (16.0-70.0) 94.5 % (16.0-70.0) Lymphocytes (%) (Auto) 8.4 % (9.0-44.0) 3.2 % (9.0-44.0) 1.7 % (9.0-44.0) Monocytes (%) (Auto) 9.7 % (0.0-8.0) Neutrophils # (Auto) 11.4 TH/MM3 (1.8-7.7) 9.7 TH/MM3 (1.8-7.7) 17.5 TH/MM3 (1.8-7.7) Monocytes # (Auto) 1.4 TH/MM3 (0-0.9) Albumin 2.5 GM/DL (3.4-5.0) 2.1 GM/DL (3.4-5.0) Sodium Level 132 MEQ/L (136-145) 132 MEQ/L (136-145) Chloride Level 91 MEQ/L (98-107) 93 MEQ/L (98-107) Troponin I LESS THAN 0.02 NG/ML Blood Gas Base Excess 2.9 mmol/L (-2-2) Blood Gas Oxygen Saturation 85 % (90-100) Arterial Blood pH 7.49 (7.380-7.420) Arterial Blood Partial Pressure CO2 34 mmHg (38-42) Arterial Blood Partial Pressure O2 55 mmHg (61-120) Blood Gas Hemoglobin 11.6 G/DL (12.0-16.0) Red Blood Count 3.89 MIL/MM3 (4.50-5.90) 3.85 MIL/MM3 (4.50-5.90) Lymphocytes # (Auto) 0.3 TH/MM3 (1.0-4.8) 0.3 TH/MM3 (1.0-4.8) Random Glucose 173 MG/DL (74-106) Alkaline Phosphatase 126 U/L (45-117) Mean Corpuscular Hemoglobin Concent 31.0 % (32.0-36.0) Imaging Last Impressions CT Angiography 08/10/17 0000 Signed Impressions: Service Date/Time: Thursday, August 10, 2017 18:39 - CONCLUSION: 1. Dense consolidation of both lung bases most characteristic of bronchopneumonia. There is also extensive distal airway disease in the lungs especially mid and lower lungs with bronchiectasis and peribronchial thickening. There is moderate emphysema. 2. Negative for pulmonary embolus. 3. Borderline to mildly enlarged hilar and mediastinal lymph nodes. Akbar Reyes MD Chest X-Ray 08/09/17 1906 Signed Impressions: Service Date/Time: Wednesday, August 09, 2017 19:33 - CONCLUSION: Increasing airspace disease left lower lobe.. Edy Toure MD FACR PE at Discharge GENERAL: Patient sitting up in bed eating breakfast. Appears comfortable. Cachectic. NECK: Supple, trachea midline. CARDIOVASCULAR: Regular rate and rhythm without murmurs RESPIRATORY: decreased Breath sounds equal bilaterally. No accessory muscle use. very faint crackles bilateral bases. GASTROINTESTINAL: Abdomen soft, non-tender, nondistended. MUSCULOSKELETAL: No edema. Pt update on day of discharge Pt feeling a lot better. Wants to go home w home health and refuses rehab. states family is coming to get him after easter at sister's house to take him to [place] no nausea or vomiting. SOB much improved. minimal cough. No Chest pains Hospital Course //Sepsis on admission w Bronchopneumonia admitted w Leukocytosis of 14, tachypnea, tachycardia. Left lower lobe pneumonia. -Blood cultures were neg x 2 days was treated w levaquin and responding. Import Specialist, Dr. Atkins, evaluated the pt and agrees w current management. Recommends transitioning to po levaquin //COPD: Chronic Respiratory Failure w/ Acute Exacerbation. Severe. +wheezing , +respiratory distress on arrival. O2 sat 93-95% on 5L NC. Solu-Medrol, DuoNeb, Symbicort, Mucinex. Supposed to be on Home O2 but states can't afford it. Consult Case Management for assistance. = Continue duo nebs, steroids. CT pulmonary Angio neg for PE but + for bronchopneumonia. PT evaluated the patient and recommended rehab but pt refuses and states that he wants to go home to his sister's house and his family is flying down from [place] after [place] to pick him up and take him there Pt Condition on Discharge: Stable Discharge Disposition: Disch w/ Home Health Serv Discharge Time: > 30 minutes Discharge Instructions DIET: Follow Instructions for: As Tolerated, No Restrictions Activities you can perform: Regular-No Restrictions Follow up Referrals: PCP Follow-up - 1 Week Pulmonology - 1 Week New Medications: Levofloxacin (Levaquin) 750 Mg Tablet 750 MG PO DAILY for Infection, #7 TAB 0 Refills Nebulizer (Aeroneb Go Nebulizer) 1 Each Each UNIT INH DIRECTED, #1 Oxygen (O2) (Oxygen (O2)) Device LITER PAMELA.CANULA CONTINUOUS for Prevent Hypoxemia, #2 Oxygen Concentrator Portable Gaseous 2 L/min via Nasal Canula Continuous For 99 months Prednisone (Prednisone) 20 Mg Tab 40 MG PO DAILY, #6 TAB 0 Refills [Albuterol-Ipratropium Neb] () 1 AMPULE NEBU 1 AMPULE NEB Q6HR WHILE AWAKE NEB, #1 BOX [Budeson-Formot 160-4.5 Mcg Inh] () 60 PUFF AERO 2 PUFF INH Q12HR, #1 [guaiFENesin ER] () 600 MG TABCR 600 MG PO BID, #20 Sobia Lassiter MD Aug 12, 2017 09:35
--- NOTE | 2017-08-12 09:36 | HHI.FF ---
Face to Face Verification Diagnosis: (1) Hypoxemia (2) COPD exacerbation (3) PNA (pneumonia) Physical Therapy Order: Evaluate and Treat I have seen patient Justin Moya on 08/12/17. My clinical findings support the need for the requested home health care services because: PT evaluated the pt and recommended rehab however pt refuses rehab and wants to go home w PT Patient has SOB Deconditioned w/ increased weakness I certify that my clinical findings support that this patient is homebound because: PT evaluated the pt and recommended rehab however pt refuses rehab and wants to go home w PT Unsteady gait/balance Sobia Lassiter MD Aug 12, 2017 09:36
[2017-08-12 10:27] LABS: AUTOMATED NEUTROPHIL # 10.8 TH/MM3 (1.8-7.7); BASOPHIL % 0.2 % (0.0-2.0); HEMATOCRIT 30.5 % (39.0-51.0); HEMOGLOBIN 9.6 GM/DL (13.0-17.0); LYMPH % 3.5 % (9.0-44.0); LYMPHOCYTE # 0.4 TH/MM3 (1.0-4.8); MEAN CELL VOLUME 73.8 FL (80.0-100.0); MEAN CORPUSCULAR HEMOGLOBIN 23.1 PG (27.0-34.0); MEAN CORPUSCULAR HGB CONC 31.3 % (32.0-36.0); MEAN PLATELET VOLUME 6.5 FL (7.0-11.0); MONO % 2.8 % (0.0-8.0); MONOCYTE # 0.3 TH/MM3 (0-0.9); NEUT % 93.5 % (16.0-70.0); PLATELET COUNT 586 TH/MM3 (150-450); RED BLOOD COUNT 4.13 MIL/MM3 (4.50-5.90); WHITE BLOOD COUNT 11.5 TH/MM3 (4.0-11.0)
[2017-08-12 11:12] LABS: ALBUMIN 2.3 GM/DL (3.4-5.0); BICARBONATE 29.8 MEQ/L (21.0-32.0); CALCIUM 9.1 MG/DL (8.5-10.1); CREATININE 0.67 MG/DL (0.60-1.30); MAGNESIUM 2.1 MG/DL (1.5-2.5)
[2017-08-12 11:13] LABS: PHOSPHORUS 2.8 MG/DL (2.5-4.9)
[2017-08-12] MEDS: LEVOFLOXACIN 750 MG PREMIX INJ 150 ML IV SCH (21:19)
[2017-08-13] MEDS: methylPREDNISolone SOD SUCC 40 MG/1 ML VIAL IV PUSH SCH ×4 (00:41→17:35)
[2017-08-13] MEDS: RESP: ALBUTEROL 2.5 MG/IPRATROPIUM 0.5 MG NEB (SCH) NEB ×3 (07:57→16:00)
[2017-08-13 07:59] VITALS: O2SAT 97
[2017-08-13 08:00] VITALS: BP 105/52; PULSE 79; RESP 18; TEMP 97; O2SAT 99
[2017-08-13] MEDS: DOCUSATE SODIUM 50 MG/SENNA 8.6 MG TAB PO SCH (09:00)
[2017-08-13] MEDS: HEPARIN SODIUM - SQ 10,000 UNITS/ML VIAL SQ SCH (09:00)
[2017-08-13] MEDS: guaiFENesin E.R. 600 MG TAB PO SCH (09:17)
[2017-08-13] MEDS: BUDESONIDE-FORMOTEROL 160/4.5 MCG INHALER INH SCH (09:20)
[2017-08-13] MEDS: SODIUM CHLORIDE 0.9% FLUSH 10 ML FLUSH IV FLUSH SCH (09:20)
[2017-08-13] MEDS ORDERED: PNEUMOCOCCAL POLYVALENT INJ 25 MCG/0.5 ML SYR IM ONE (10:00)
[2017-08-13 12:00] VITALS: BP 116/55; PULSE 96; RESP 18; TEMP 98; O2SAT 98
[2017-08-13 16:00] VITALS: BP 115/65; PULSE 91; RESP 16; TEMP 97.7; O2SAT 97
--- NOTE | 2017-08-13 18:54 | HHI.PR ---
Objective Vitals Vital Signs Date Time Temp Pulse Resp B/P (MAP) Pulse Ox O2 Delivery O2 Flow Rate FiO2 08/13/17 16:00 97.7 91 16 115/65 (82) 97 08/13/17 12:00 98.0 96 18 116/55 (75) 98 08/13/17 09:20 Nasal Cannula 2.00 08/13/17 08:00 97.0 79 18 105/52 (69) 99 08/13/17 07:59 97 Nasal Cannula 2.00 08/12/17 20:00 Nasal Cannula 2.00 08/12/17 20:00 96.1 96 18 104/58 (73) 98 I/O 08/12/17 08/12/17 08/12/17 08/13/17 08/13/17 08/13/17 07:00 15:00 23:00 07:00 15:00 23:00 Intake Total 360 ml 1200 ml 150 ml Output Total 300 ml 800 ml 1000 ml Balance 60 ml 400 ml -850 ml Intake Oral 360 ml 1200 ml IV Total 0 ml 150 ml Output Urine Total 300 ml 800 ml 1000 ml Emesis 0 ml # Bowel Movements 0 1 Result Diagram: 08/12/17 0932 08/12/17 0932 Procedures none A/P Problem List: (1) COPD (chronic obstructive pulmonary disease) ICD Code: J44.9 - Chronic obstructive pulmonary disease, unspecified (2) PNA (pneumonia) ICD Code: J18.9 - Pneumonia, unspecified organism (3) Tobacco abuse ICD Code: Z72.0 - Tobacco use Problem Qualifiers (1) COPD (chronic obstructive pulmonary disease): Qualified Codes: J44.9 - Chronic obstructive pulmonary disease, unspecified Deangelo Blair MD Aug 13, 2017 18:54
== END 2017-08-13 20:10 | disposition home or self-care (01) | DRG 871 ==
LOC: NEPE 18:46 → NEDA 20:43 → NEPGCP 22:18 → OBSVTOIN 08-10 17:27 → HOCA 08-12 02:50
PROVIDERS: ADMIT Internal Medicine; ATTEND Internal Medicine
DX: A41.9 Sepsis, unspecified organism (principal); J18.0 Bronchopneumonia, unspecified organism; J96.21 Acute and chronic respiratory failure with hypoxia; J47.0 Bronchiectasis with acute lower respiratory infection; J47.1 Bronchiectasis with (acute) exacerbation; Z68.1 Body mass index [BMI] 19.9 or less, adult; R63.4 Abnormal weight loss; J43.9 Emphysema, unspecified; F17.210 Nicotine dependence, cigarettes, uncomplicated
CPT/HCPCS: 36600; 71045; 71275; 80053; 80069; 82550; 82805; 83735; 83880; 84484; 85025; 87040; 93005; 94618; 94640; 94664; 96365; G0378; J0456; J0696; J1644; J1956; J2920; J2930; J7050; J7613; Q9967